=== PATIENT | female | born 1980 | race Two or more races ===

== ENCOUNTER 2018-02-09 02:25 | Emergency (ER) | payer OTHER ==
[~2018-02-09] VITALS: Ht 157.5 cm; Wt 60.3 kg
[~2018-02-09 02:25] MED LIST: ATENOLOL25 MG; FIORICET TABLET1 TAB; MILLIPRED5 MG PO; ORAPRED ODT10 MG/TAB
[2018-02-09] MEDS ORDERED: VENTOLIN HFA18 GM IH (02:34)
[2018-02-09] MEDS ORDERED: ZITHROMAX500 MG PO (08:21)
[2018-02-09] MEDS ORDERED: DOLOGESIC 500-1 EACH PO (08:21)
[2018-02-09] MEDS ORDERED: ZYNCOF 20-400120 ML PO (08:21)
== END 2018-02-09 08:37 | disposition home or self-care (01) ==
LOC: ER 02:25
DX: H60.8X1 Other otitis externa, right ear (principal); J40 Bronchitis, not specified as acute or chronic; R50.9 Fever, unspecified

== ENCOUNTER 2020-09-16 08:42 | Outpatient (CLI) | payer OTHER ==
[~2020-09-16 08:42] MED LIST changes: +DOLOGESIC 500-1 EACH PO; +VENTOLIN HFA18 GM IH; +ZITHROMAX500 MG PO; +ZYNCOF 20-400120 ML PO
== END 2020-09-16 08:55 | disposition home or self-care (01) ==
LOC: MAMO-SONO 08:42
DX: Z12.31 Encounter for screening mammogram for malignant neoplasm of breast (principal); E66.09 Other obesity due to excess calories

== ENCOUNTER 2020-09-28 07:34 | Outpatient (CLI) | payer OTHER | END 2020-09-28 08:05 | disposition home or self-care (01) | LOC: NUCLEAR 07:34 | PROVIDERS: ATTEND Internal Medicine | DX: M19.09 Primary osteoarthritis, other specified site (principal); M25.50 Pain in unspecified joint; M06.4 Inflammatory polyarthropathy | CPT/HCPCS: 78315; A9503 ==

== ENCOUNTER 2021-06-29 07:33 | Outpatient (CLI) | payer OTHER | END 2021-06-29 07:44 | disposition home or self-care (01) | LOC: MAMO-SONO 07:33 | PROVIDERS: ATTEND General Practice | DX: M32.8 Other forms of systemic lupus erythematosus (principal); N63.0 Unspecified lump in unspecified breast ==

== ENCOUNTER 2023-07-07 15:33 | Emergency (ER) | payer OTHER ==
[~2023-07-07] VITALS: Ht 157.5 cm; Wt 63.0 kg
[2023-07-07] MEDS ORDERED: PLAQUENIL (15:52)
== END 2023-07-07 21:53 | disposition home or self-care (01) ==
LOC: ER 15:33 → EMR PED 15:35 → ER 21:53
PROVIDERS: General Practice
DX: N39.0 Urinary tract infection, site not specified (principal); Z88.6 Allergy status to analgesic agent

== ENCOUNTER 2024-06-07 07:38 | Emergency (ER) | payer OTHER ==
[~2024-06-07] VITALS: Ht 157.5 cm; Wt 58.5 kg
[~2024-06-07 07:38] MED LIST changes: +PLAQUENIL
[2024-06-07] MEDS ORDERED: FAMOtidine 200mg/20ml VIAL ONE (08:07)
[2024-06-07] MEDS ORDERED: ONDANSETRON HCL 2 MG/ML VIAL ONE (08:07)
[2024-06-07] MEDS ORDERED: 0.9 % SODIUM CHLORIDE 1,000 ML IV SCH (08:15)
[2024-06-07] MEDS ORDERED: FAMOtidine 10 MG/ML (4ML VIAL) IV STA (08:16)
[2024-06-07] MEDS ORDERED: ONDANSETRON HCL 2 MG/ML VIAL IV STA (08:17)
[2024-06-07 08:36] LABS: HEMATOCRIT 27.9 % (36.0-45.00); MEAN CORPUSCULAR HGB CONC 30.7 g/dl (32.0-36.0); PLATELET COUNT 322 K/uL (150-450); RED BLOOD COUNT 4.47 M/uL (4.00-6.00); RED CELL DISTRIBUTION WIDTH 19.3 % (11.5-14.5)
[2024-06-07 08:53] LABS: ERYTHROCYTE SEDIMENTATION RATE 15 mm/hr
[2024-06-07 08:58] LABS: HEMOGLOBIN 8.6 g/dL (12.0-15.00); MEAN CELL VOLUME 62.6 fL (80.00-100.00); MEAN CORPUSCULAR HEMOGLOBIN 19.2 pg (27.00-32.0)
[2024-06-07 09:01] LABS: CREATININE SERUM 0.78 mg/dL (0.55-1.02); GFR 80.23; POTASSIUM 3.96 mEq/L (3.5-5.1)
[2024-06-07 10:00] LABS: PH,URINE 5.5 (5.0-8.0); URINE APPEARANCE Clear; URINE BILIRRUBIN Negative (NEGATIVE); URINE BLOOD Trace; URINE COLOR Yellow; URINE GLUCOSE Negative (NEGATIVE); URINE LEUKOCYTE Negative; URINE NITRATE Negative; URINE PROTEIN Negative (NEGATIVE); URINE UROBILINOGEN 0.2 E.U./dl
[2024-06-07 10:05] LABS: URINE BACTERIA 138.5 uL (0.0-1933); URINE EPITHELIAL CELLS 23.7 uL (0.0-38.8); URINE RBC 8.3 uL (0.0-20.8); URINE WBC 6.1 uL (0.0-23.2)
== END 2024-06-07 12:16 ==
LOC: ER 07:39
PROVIDERS: General Practice
DX: N83.209 Unspecified ovarian cyst, unspecified side (principal); D25.9 Leiomyoma of uterus, unspecified

== ENCOUNTER 2025-03-04 21:00 | Inpatient (IN) | payer OTHER ==
[~2025-03-04] VITALS: Ht 157.5 cm; Wt 56.7 kg
[~2025-03-04 21:00] MED LIST changes: +KETOROLAC TROMETHAMINE 60 MG VIAL IM ONE
[2025-03-04] MEDS ORDERED: FAMOTIDINE/PF 20 MG in 0.9 % SODIUM CHLORIDE 8 ML IV PUSH SCH (23:32)
[2025-03-04] MEDS ORDERED: CEFTRIAXONE SODIUM 2,000 MG in 0.9 % SODIUM CHLORIDE 100 ML IV SCH (23:32)
[2025-03-04] MEDS ORDERED: ONDANSETRON HCL 4 MG in 0.9 % SODIUM CHLORIDE 50 ML IV PRN (23:45)
[2025-03-04] MEDS ORDERED: ACETAMINOPHEN 500 MG GEL..CAP PO PRN (23:45)
[2025-03-05] MEDS ORDERED: METRONIDAZOLE/SODIUM CHLORIDE 100 ML IV SCH (01:00)
[2025-03-05] MEDS ORDERED: ONDANSETRON HCL 2 MG/ML VIAL ONE (02:26)
[2025-03-05] MEDS ORDERED: IRON FUM,PS/FOLIC/BCOMP,C NO.9 1 CAP CAPSULE PO SCH (09:00)
[2025-03-05] MEDS ORDERED: METRONIDAZOLE/SODIUM CHLORIDE 500 MG/100 ML PIGGYBACK IV ONE (09:08)
[2025-03-05] MEDS ORDERED: FAMOTIDINE/PF 20 MG/2 ML VIAL ONE (09:08)
[2025-03-05] MEDS ORDERED: CEFTRIAXONE SODIUM 2,000 MG VIAL ONE (09:08)
[2025-03-05] MEDS ORDERED: 0.9 % SODIUM CHLORIDE 1,000 ML IV SCH ×2 (10:30→14:00)
[2025-03-05] MEDS ORDERED: ONDANSETRON HCL 2 MG/ML VIAL IV PRN (10:30)
[2025-03-05] MEDS ORDERED: ACETAMINOPHEN 500 MG GEL..CAP PO PRN (10:30)
[2025-03-05 12:30] VITALS: BP 95/64; O2SAT 100
[2025-03-05] MEDS ORDERED: METRONIDAZOLE/SODIUM CHLORIDE 500 MG/100 ML PIGGYBACK IV SCH (13:00)
[2025-03-05] MEDS ORDERED: CEFTRIAXONE SODIUM 2,000 MG VIAL IV SCH (17:00)
[2025-03-05 17:53] VITALS: BP 106/52; O2SAT 98
[2025-03-05] MEDS ORDERED: FAMOTIDINE/PF 20 MG/2 ML VIAL IV SCH (21:00)
[2025-03-06 00:31] LABS: PH,URINE 6.5 (5.0-8.0); URINE APPEARANCE Clear; URINE BILIRRUBIN Negative (NEGATIVE); URINE BLOOD Negative; URINE COLOR Yellow; URINE GLUCOSE Negative (NEGATIVE); URINE KETONE Trace (NEGATIVE); URINE LEUKOCYTE Negative; URINE NITRATE Negative; URINE PROTEIN Negative (NEGATIVE); URINE UROBILINOGEN 0.2 E.U./dl
[2025-03-06 00:35] LABS: URINE EPITHELIAL CELLS 7.4 uL (0.0-38.8)
[2025-03-06 00:41] LABS: URINE BACTERIA 3.6 uL (0.0-1933); URINE RBC 1.1 uL (0.0-20.8); URINE WBC 1.1 uL (0.0-23.2)
[2025-03-06 01:57] VITALS: BP 106/69; O2SAT 100
[2025-03-06] MEDS ORDERED: IRON FUM,PS/FOLIC/BCOMP,C NO.9 1 CAP CAPSULE PO SCH (09:00)
[2025-03-06 09:31] VITALS: BP 121/74; O2SAT 100
[2025-03-06 10:52] LABS: CALCIUM 8.4 mg/dL (8.5-10.1); CREATININE SERUM 0.63 mg/dL (0.55-1.02); GFR 102.66; POTASSIUM 4.45 mEq/L (3.5-5.1)
[2025-03-06 15:36] LABS: HEMATOCRIT 33.1 % (36.0-45.00); MEAN CORPUSCULAR HGB CONC 30.8 g/dl (32.0-36.0); PLATELET COUNT 298 K/uL (150-450); RED BLOOD COUNT 5.13 M/uL (4.00-6.00)
[2025-03-06 15:44] LABS: HEMOGLOBIN 10.2 g/dL (12.0-15.00); MEAN CELL VOLUME 64.5 fL (80.00-100.00); MEAN CORPUSCULAR HEMOGLOBIN 19.8 pg (27.00-32.0); RED CELL DISTRIBUTION WIDTH 28.2 % (11.5-14.5)
[2025-03-06 16:52] VITALS: BP 103/61; O2SAT 96
[2025-03-07 03:03] VITALS: BP 93/50; O2SAT 100
[2025-03-07 07:55] VITALS: BP 108/74
== END 2025-03-07 11:59 | DRG 812 ==
LOC: ER 21:10 → SEC-K 22:10 → ER 23:27 → MEDI 03-05 13:37
PROVIDERS: Internal Medicine Infectious Disease; ADMIT Student in an Organized Health Care Education/Training Program; ATTEND Student in an Organized Health Care Education/Training Program
PROC: BW21YZZ Computerized Tomography (CT Scan) of Abdomen and Pelvis using Other Contrast (ICD-10-PCS; principal; 2025-03-04)
PROC: BU4CZZZ Ultrasonography of Uterus and Ovaries (ICD-10-PCS; 2025-03-04)
PROC: 30233N1 Transfusion of Nonautologous Red Blood Cells into Peripheral Vein, Percutaneous Approach (ICD-10-PCS; 2025-03-05)
DX: D64.9 Anemia, unspecified (principal); N39.0 Urinary tract infection, site not specified; K52.9 Noninfective gastroenteritis and colitis, unspecified; D26.9 Other benign neoplasm of uterus, unspecified